=== PATIENT | female | born 1970 | race Caucasian/White ===

== ENCOUNTER 2017-09-07 17:53 | Emergency (ER) | payer BC ==
[~2017-09-07] VITALS: Ht 162.6 cm; Wt 88.4 kg
[~2017-09-07 17:53] MED LIST: ALEVE220 MG PO; BIOTIN 5000MCG PO; CYMBALTA60 MG PO; FIBER500 MG PO; HYDROCHLOROTH12.5 M3 PO; HYDROCODON-ACE1 EAC7 PO; OMEPRAZOLE40 M1 PO; PRAVACHOL20 MG PO; PROBIOTIC1 EAC1 PO; SYNTHROID200 MCG PO; TRAZODONE HCL50 MG PO
[2017-09-07 18:37] LABS: HEMATOCRIT 37.7 % (36.0-46.0); HEMOGLOBIN 13.2 G/DL (11.9-15.5); MCH 31.7 PG (29.0-34.0); MCV 90.6 FL (83-99); PLATELET COUNT 177 K/uL (156-360); RBC DIS.WIDTH-CV 12.3 % (11.8-14.6); RBC DIS.WIDTH-SD 40.5 % (39-53); RED BLOOD COUNT 4.16 M/uL (3.80-5.20); WHITE BLOOD COUNT 5.4 K/uL (4.1-10.2)
[2017-09-07 18:48] LABS: CHLORIDE 104 mEq/L (99-109); POTASSIUM 3.9 mEq/L (3.7-5.4); SODIUM 141 mEq/L (136-147)
[2017-09-07 18:51] LABS: GLUCOSE 115 mg/dL (70-99)
[2017-09-07 18:53] LABS: TOTAL BILIRUBIN 0.3 mg/dL (0.0-1.0)
[2017-09-07 18:54] LABS: ALKALINE PHOSPHATASE 62 IU/L (3-129); CREATININE 0.8 mg/dL (0.6-1.3); GFR ESTIMATE (CALCULATED) > 59 mL/min/
[2017-09-07 18:56] LABS: AST (GOT) 18 IU/L (2-34); UREA NITROGEN (BUN) 4 mg/dL (9-23)
[2017-09-07 18:57] LABS: ALT (GPT) 24 IU/L (3-49)
[2017-09-07 18:58] LABS: LIPASE 19 U/L (1.0-51.0)
[2017-09-07 19:04] LABS: QUANTITATIVE HCG < 4.0 MIU/ML
[2017-09-07 19:27] LABS: APPEARANCE SL.HAZY ((CLEAR)); BILIRUBIN NEGATIVE; BLOOD NEGATIVE; COLOR YELLOW ((YELLOW)); GLUCOSE (STRIP) NEGATIVE; KETONES NEGATIVE; LEUKOCYTES NEGATIVE; NITRITE NEGATIVE; PROTEIN (STRIP) NEGATIVE; SPECIFIC GRAVITY 1.009 (1.000-1.030); UROBILINOGEN 0.2 MG/DL (0.2-1.0)
[2017-09-07 19:36] LABS: BACTERIA RARE /HPF; EPITHELIAL CELLS 2+ /HPF; MUCUS NONE SEEN /LPF; RED BLOOD CELLS 0-5 /HPF (0-5); WHITE BLOOD CELLS 0-5 /HPF (0-5)
[2017-09-07] MEDS ORDERED: CIPRO500 MG PO (20:36)
[2017-09-07] MEDS ORDERED: ZOFRAN ODT4 MG PO (20:36)
[2017-09-07] MEDS ORDERED: FLAGYL500 MG PO (20:36)
[2017-09-07] MEDS ORDERED: BENTYL10 MG PO (20:36)
[2017-09-07 20:54] VITALS: BP 113/67
[2017-09-21] MEDS ORDERED: B COMPLEX #11 EACH PO (09:40)
[2017-09-21] MEDS ORDERED: IRON325 M1 PO (09:40)
[2017-09-21] MEDS ORDERED: METHYLPHENIDATE10 M6 PO (09:49)
[2017-09-21] MEDS ORDERED: VENTOLIN HFA18 GM IH (09:49)
[2017-09-22] MEDS ORDERED: CALCIUM500 M4 PO (11:04)
[2017-09-22] MEDS ORDERED: ASCORBIC ACID100 MG PO (11:04)
[2017-09-22] MEDS ORDERED: MAGNESIUM100 MG PO (11:05)
[2017-09-22] MEDS ORDERED: ONCE DAILY1 EACH PO (11:06)
== END 2017-09-07 20:55 | disposition home or self-care (01) ==
LOC: EME 17:53
PROVIDERS: Nurse Practitioner Family
DX: K57.92 Diverticulitis of intestine, part unspecified, without perforation or abscess without bleeding (principal); N83.201 Unspecified ovarian cyst, right side; Z98.84 Bariatric surgery status; F32.9 Major depressive disorder, single episode, unspecified; J45.909 Unspecified asthma, uncomplicated; K21.9 Gastro-esophageal reflux disease without esophagitis; Z86.69 Personal history of other diseases of the nervous system and sense organs; Z88.2 Allergy status to sulfonamides
CPT/HCPCS: 74177; 80053; 81003; 83690; 84702; 85027; 99281; 99284; J2405; J3010; J7030

== ENCOUNTER → 2017-09-22 | Outpatient (CLI) | payer BC ==
[~2017-09-22] VITALS: Ht 162.6 cm; Wt 86.2 kg
[~2017-09-22] MED LIST changes: +ASCORBIC ACID100 MG PO; +B COMPLEX #11 EACH PO; +BENTYL10 MG PO; +CALCIUM500 M4 PO; +CIPRO500 MG PO; +FLAGYL500 MG PO; +IRON325 M1 PO; +MAGNESIUM100 MG PO; +METHYLPHENIDATE10 M6 PO; +ONCE DAILY1 EACH PO; +VENTOLIN HFA18 GM IH; +ZOFRAN ODT4 MG PO
== END | disposition home or self-care (01) ==
LOC: AMB 10:40
DX: K21.0 Gastro-esophageal reflux disease with esophagitis (principal); K29.50 Unspecified chronic gastritis without bleeding; K44.9 Diaphragmatic hernia without obstruction or gangrene; Z98.84 Bariatric surgery status; J45.909 Unspecified asthma, uncomplicated; D64.9 Anemia, unspecified; F90.9 Attention-deficit hyperactivity disorder, unspecified type; F32.9 Major depressive disorder, single episode, unspecified; E11.9 Type 2 diabetes mellitus without complications; E78.5 Hyperlipidemia, unspecified; E03.9 Hypothyroidism, unspecified; E66.9 Obesity, unspecified; Z68.33 Body mass index [BMI] 33.0-33.9, adult; Z88.5 Allergy status to narcotic agent; Z88.2 Allergy status to sulfonamides; Z88.8 Allergy status to other drugs, medicaments and biological substances; Z83.3 Family history of diabetes mellitus; Z82.49 Family history of ischemic heart disease and other diseases of the circulatory system; Z87.891 Personal history of nicotine dependence
CPT/HCPCS: 88305; 88342 TC; J3010